=== PATIENT | male | born 1965 | race Caucasian/White ===

== ENCOUNTER 2019-01-26 13:04 | Inpatient (IN) | payer OTHER ==
[2019-01-26] MEDS ORDERED: NA CHLORIDE 0.9% 250 ML ONE (13:52)
[2019-01-26] MEDS ORDERED: VANCOMYCIN 1 GM/VIAL ONE (13:52)
--- NOTE | 2019-01-26 13:52 | ER ---
Nurse's Notes [facility] Name: Rayo Tidwell Age: 53 yrs Sex: Male : 1965 Arrival Date: 01/26/2019 Time: 13:09 Bed 24 Private MD: Arnel Arceo Diagnosis: Cellulitis of right lower limb-failed outpatient treatment Presentation: 01/26 13:14 Presenting complaint: Patient states: Diagnosed Thursday by Dr. Arceo with RLE ss cellulitis. Pt reports he was given a shot of antibiotics and began taking an oral regimen, but it is not helping, but getting worse. PT had US obtained yesterday of affected extremity which was negative for DVT. Transition of care: patient was not received from another setting of care. Onset of symptoms was January 23, 2019. Risk Assessment: Do you want to hurt yourself or someone else? Patient reports no desire to harm self or others. Initial Sepsis Screen: Does the patient meet any 2 criteria? No. Patient's initial sepsis screen is negative. Does the patient have a suspected source of infection? Yes: Skin breakdown/wound. Care prior to arrival: None. 13:14 Method Of Arrival: Ambulatory ss 13:14 Acuity: DEVEN 3 ss Triage Assessment: 14:12 General: Appears in no apparent distress. Behavior is calm, cooperative. Pain: ls4 Complains of pain in right foot Pain currently is 6 out of 10 on a pain scale. Neuro: Level of Consciousness is awake, alert, obeys commands, Oriented to person, place, time, situation. Cardiovascular: Reports None Capillary refill < 3 seconds Patient's skin is warm and dry. Respiratory: Airway is patent Respiratory effort is even, unlabored, Respiratory pattern is regular. Derm: Skin is pink, warm \T\ dry. right leg edema and redness from calf and continues distally to foot. Musculoskeletal: No deficits noted. Historical: - Allergies: 13:21 No Known Allergies; ss - PMHx: 13:21 Hypertension; Hypothyroidism; ss - PSHx: 13:21 None; ss - Immunization history:: Adult Immunizations up to date. - Social history:: Smoking status: . - Ebola Screening: : Patient denies exposure to infectious person Patient denies travel to an Ebola-affected area in the 21 days before illness onset. Screenin:11 Abuse screen: Denies threats or abuse. Denies injuries from another. Nutritional ls4 screening: No deficits noted. Tuberculosis screening: No symptoms or risk factors identified. Fall Risk None identified. Assessment: 14:23 Reassessment: Patient appears in no apparent distress at this time. Patient and/or ls4 family updated on plan of care and expected duration. Pain level reassessed. Patient is alert, oriented x 3, equal unlabored respirations, skin warm/dry/pink. Vital Signs: 13:21 BP 117 / 76; Pulse 88; Resp 17; Temp 98.2; Pulse Ox 99% on R/A; Weight 127.01 kg; ls4 Height 6 ft. 1 in. (185.42 cm); Pain 6/10; 14:23 BP 112 / 70; Pulse 84; Resp 16; Pulse Ox 99% on R/A; Pain 6/10; ls4 16:59 BP 124 / 80; Pulse 87; Resp 16; Pulse Ox 99% on R/A; Pain 5/10; ls4 13:21 Body Mass Index 36.94 (127.01 kg, 185.42 cm) ls4 ED Course: 13:09 Patient arrived in ED. rg4 13:09 Arnel Arceo MD is Private Physician. rg4 13:14 [facility]mill[facility]C [facility]. kb 13:14 Dennis Parks MD is Attending Physician. kb 13:20 Triage completed. ss 13:21 Arm band placed on right wrist. ss 13:32 Romina Hutchinson, ITALO is Primary Nurse. ls4 13:51 Kenneth Fernandez DO is Hospitalizing Provider. kb 14:00 Initial lab(s) drawn, by me, sent to lab. First set of blood cultures drawn by me. ls4 14:10 No provider procedures requiring assistance completed. Inserted saline lock: 20 gauge ls4 in left antecubital area, using aseptic technique. Blood collected. 14:11 Patient has correct armband on for positive identification. Side rails up X 1. Placed ls4 in gown. Bed in low position. Call light in reach. Pulse ox on. NIBP on. Warm blanket given. Verbal reassurance given. 17:30 Patient admitted, IV remains in place. ls4 Administered Medications: 14:15 Drug: vancoMYCIN 1 grams Route: IVPB; Infused Over: 2 hrs; Site: left antecubital; ls4 15:48 Follow up: IV Status: Completed infusion; IV Intake: 250ml ls4 14:15 Drug: NS 0.9% 1000 ml Route: IV; Rate: 1000 ml; Site: left antecubital; ls4 15:48 Follow up: IV Status: Completed infusion; IV Intake: 1000ml ls4 15:48 Drug: Cefepime 2 grams Route: IVPB; Rate: 200 ml/hr; Infused Over: 30 mins; Site: left ls4 antecubital; 16:18 Follow up: IV Status: Completed infusion; IV Intake: 100ml ls4 Intake: 15:48 IV: 250ml; Total: 250ml. ls4 15:48 IV: 1000ml; Total: 1250ml. ls4 16:18 IV: 100ml; Total: 1350ml. ls4 Outcome: 13:51 Decision to Hospitalize by Provider. kb 17:27 Admitted to Med/surg accompanied by nurse, room 222, Report called to Jordyn PUCKETT ls4 17:27 Condition: stable 17:27 Discharge instructions given to patient, Instructed on the need for admit, Demonstrated understanding of 17:31 Patient left the ED. ls4 Signatures: Mirela Mcmillan, RUBBER STAMP ASSEMBLER-C RUBBER STAMP ASSEMBLER-Ckb Maritza Watts RN RN ss Luly Baltazar 4 Romina Hutchinson RN RN ls4 Corrections: (The following items were deleted from the chart) 14:23 13:21 Resp 17bpm; 127.01 kg; Height 6 ft. 1 in.; BMI: 36.9; Pain 6/10; ss ls4 15:48 15:48 IV Status: Completed infusion ls4 ls4 17:01 13:21 BP 117 / 76; Pulse 88bpm; Resp 17bpm; 127.01 kg; Height 6 ft. 1 in.; BMI: 36.9; ls4 Pain 6/10; ls4
--- NOTE | 2019-01-26 13:52 | EDPHYS ---
Physician Documentation [facility] Name: Rayo Tidwell Age: 53 yrs Sex: Male : 1965 Arrival Date: 01/26/2019 Time: 13:09 Bed 24 Private MD: Arnel Arceo ED Physician Dennis Parks HPI: 01/26 13:56 This 53 yrs old Male presents to ER via Ambulatory with complaints of Leg kb Swelling. 13:56 The patient presents with cellulitis of the right lower leg. Description: erythematous, kb hot, swollen. Onset: The symptoms/episode began/occurred 4 day(s) ago. Possible cause(s): unknown. Associated signs and symptoms: Pertinent positives: nausea. Modifying factors: the symptoms are alleviated by nothing, the symptoms are aggravated by nothing. Severity of symptoms: At their worst the symptoms were moderate, in the emergency department the symptoms are unchanged. The patient has not experienced similar symptoms in the past. The patient has not recently seen a physician. Pt reports he started having chills, malaise and nausea on Thursday. Thursday had slight redness to right lower leg and tenderness. Redness and swelling progressed throughout the day, went to [place] and was put on Keflex. Swelling and redness is getting worse so he called [place] and was told to come to ER for IV antibiotics.. Historical: - Allergies: 13:21 No Known Allergies; ss - PMHx: 13:21 Hypertension; Hypothyroidism; ss - PSHx: 13:21 None; ss - Immunization history:: Adult Immunizations up to date. - Social history:: Smoking status: . - Ebola Screening: : Patient denies exposure to infectious person Patient denies travel to an Ebola-affected area in the 21 days before illness onset. ROS: 13:53 ENT: Negative for injury, pain, and discharge, Neck: Negative for injury, pain, and kb swelling, Cardiovascular: Negative for chest pain, palpitations, and edema, Respiratory: Negative for shortness of breath, cough, wheezing, and pleuritic chest pain, Abdomen/GI: Negative for abdominal pain, nausea, vomiting, diarrhea, and constipation, Neuro: Negative for headache, weakness, numbness, tingling, and seizure. 13:53 Constitutional: Positive for chills, malaise. 13:53 Skin: Positive for cellulitis, erythema, of the right lower leg. Exam: 13:55 Constitutional: This is a well developed, well nourished patient who is awake, alert, kb and in no acute distress. Head/Face: Normocephalic, atraumatic. Chest/axilla: Normal chest wall appearance and motion. Nontender with no deformity. No lesions are appreciated. Cardiovascular: Regular rate and rhythm with a normal S1 and S2. No gallops, murmurs, or rubs. Normal PMI, no JVD. No pulse deficits. Respiratory: Lungs have equal breath sounds bilaterally, clear to auscultation and percussion. No rales, rhonchi or wheezes noted. No increased work of breathing, no retractions or nasal flaring. Abdomen/GI: Soft, non-tender, with normal bowel sounds. No distension or tympany. No guarding or rebound. No evidence of tenderness throughout. MS/ Extremity: Pulses equal, no cyanosis. Neurovascular intact. Full, normal range of motion. Neuro: Awake and alert, GCS 15, oriented to person, place, time, and situation. Cranial nerves II-XII grossly intact. Motor strength 5/5 in all extremities. Sensory grossly intact. Cerebellar exam normal. Normal gait. 13:55 Skin: cellulitis, that is moderate, that is severe, on the right lower leg (calf to foot). Vital Signs: 13:21 BP 117 / 76; Pulse 88; Resp 17; Temp 98.2; Pulse Ox 99% on R/A; Weight 127.01 kg; ls4 Height 6 ft. 1 in. (185.42 cm); Pain 6/10; 14:23 BP 112 / 70; Pulse 84; Resp 16; Pulse Ox 99% on R/A; Pain 6/10; ls4 16:59 BP 124 / 80; Pulse 87; Resp 16; Pulse Ox 99% on R/A; Pain 5/10; ls4 13:21 Body Mass Index 36.94 (127.01 kg, 185.42 cm) ls4 MDM: 13:14 Patient medically screened. kb 13:48 Data reviewed: vital signs, nurses notes. Data interpreted: Pulse oximetry: on room air kb is 100 %. Interpretation: normal. Counseling: I had a detailed discussion with the patient and/or guardian regarding: the historical points, exam findings, and any diagnostic results supporting the discharge/admit diagnosis, lab results, the need for further work-up and treatment in the hospital. 13:51 Physician consultation: Kenneth Fernandez DO was contacted at 13:51, regarding admission, kb to the medical/surgical unit. patient's condition, in the emergency department to see patient at 13:51. 01/26 13:22 Order name: CBC with Diff; Complete Time: 14:30 kb 01/26 13:22 Order name: Basic Metabolic Panel; Complete Time: 14:30 kb 01/26 13:22 Order name: Procalcitonin; Complete Time: 14:56 kb 01/26 13:22 Order name: Blood Culture Adult (2) kb 01/26 13:22 Order name: Lactate; Complete Time: 14:37 kb 01/26 13:22 Order name: IV Start; Complete Time: 14:11 kb Administered Medications: 14:15 Drug: vancoMYCIN 1 grams Route: IVPB; Infused Over: 2 hrs; Site: left antecubital; ls4 15:48 Follow up: IV Status: Completed infusion; IV Intake: 250ml ls4 14:15 Drug: NS 0.9% 1000 ml Route: IV; Rate: 1000 ml; Site: left antecubital; ls4 15:48 Follow up: IV Status: Completed infusion; IV Intake: 1000ml ls4 15:48 Drug: Cefepime 2 grams Route: IVPB; Rate: 200 ml/hr; Infused Over: 30 mins; Site: left ls4 antecubital; 16:18 Follow up: IV Status: Completed infusion; IV Intake: 100ml ls4 Disposition: 01/26/19 13:51 Hospitalization ordered by Kenneth Fernandez for Inpatient Admission. Preliminary diagnosis is Cellulitis of right lower limb - failed outpatient treatment. - Bed requested for Telemetry/MedSurg (Inpatient). - Status is Inpatient Admission. ls4 - Condition is Stable. - Problem is new. - Symptoms are unchanged. UTI on Admission? No Signatures: Dispatcher [employer] Mirela Deleon FNP-C FNP-Ckb Dirrim, Barbara bd Smirch, Shelby, RN RN ss Stewart, Lisa, RN RN ls4 Corrections: (The following items were deleted from the chart) 16:18 13:51 Hospitalization Ordered by eKnneth Fernandez DO for Inpatient Admission. Preliminary bd diagnosis is Cellulitis of right lower limb - failed outpatient treatment. Bed requested for Telemetry/MedSurg (Inpatient). Status is Inpatient Admission. Condition is Stable. Problem is new. Symptoms are unchanged. UTI on Admission? No. kb 17:31 16:18 01/26/2019 13:51 Hospitalization Ordered by Kenneth Fernandez DO for Inpatient ls4 Admission. Preliminary diagnosis is Cellulitis of right lower limb - failed outpatient treatment. Bed requested for Telemetry/MedSurg (Inpatient). Status is Inpatient Admission. Condition is Stable. Problem is new. Symptoms are unchanged. UTI on Admission? No. bd
[2019-01-26 14:16] LABS: Absolute Lymphocytes (CBC) 1.4 K/uL (0.7-4.9); Absolute Monocytes 0.9 K/uL (0.1-1.3); Absolute Neutrophil 4.7 K/uL (1.8-8.0); Basophils % 0.4 % (0-1.3); Eosinophils % 1.6 % (0-4.4); Lymphocytes % 19.8 % (15.3-44.8); MPV 9.4 fL (7.6-11.3); Monocytes % 12.4 % (3.3-12.3); RBC Red Blood Cell Count 4.38 M/uL (4.33-5.43)
[2019-01-26 14:28] LABS: Potassium 3.8 mmol/L (3.5-5.1)
--- NOTE | 2019-01-26 15:05 | P.HP ---
Certification for Inpatient Patient admitted to: Inpatient With expected LOS: >2 Midnights Patient will require the following post-hospital care: None Practitioner: I am a practitioner with admitting privileges, knowledge of patient current condition, hospital course, and medical plan of care. Services: Services provided to patient in accordance with Admission requirements found in Title 42 Section 412.3 of the Code of Federal Regulations Patient History Date of Service: 01/26/19 Primary Care Provider: Dr. Newell Reason for admission: Failed Outpatient RLE Cellulitis History of Present Illness: 53-year-old male presented to emergency room with right lower extremity cellulitis. Erythema, swelling, and warmth was 1st noted on Thursday. He made an appointment on Thursday to see his PCP. He was given Keflex over the last 2 days. He also had a venous Doppler of the lower extremity to rule out DVT. He reported that this was negative. The erythema worsened. He now has streaking circumferentially below the knee and above the knee medially. He has reported some chills. No significant nausea, vomiting. No GI changes noted. No chest pain or shortness of breath. Patient came to the ER after it was recommended by his PCP. In the ER white count 7.2, hemoglobin 15. Lactic acid negative. Sodium 138, potassium 3.8, creatinine 1.34 with a GFR 56. Significant edema, erythema noted. Patient was given IV vancomycin in the emergency room. Blood cultures obtained. Patient was admitted for treatment. The patient the ER, he appeared comfortable. Patient with history of hypertension, hypothyroidism, varicose veins with chronic venous insufficiency of the lower extremities. Patient stands a lot at work. He does use compression stockings. 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 He has 1 child. 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 - Family History Sister -: Diabetes Father -: Cancer (Prostate cancer) - Social History Smoking Status: Never smoker Alcohol use: Yes CD- Drugs: No Caffeine use: Yes Place of Residence: Home Review of Systems General: Chills, As per HPI Eyes: Unremarkable ENT: Unremarkable Respiratory: Unremarkable Cardiovascular: Unremarkable Gastrointestinal: Unremarkable Genitourinary: Unremarkable Musculoskeletal: Pedal edema, As per HPI Integumentary: As per HPI Neurological: Unremarkable Lymphatics: Unremarkable Physical Examination - Physical Exam General: Alert, In no apparent distress, Oriented x3, Cooperative HEENT: Atraumatic, Normocephalic, PERRLA, Mucous membr. moist/pink Neck: Supple, No Thyromegaly Respiratory: Clear to auscultation bilaterally, Normal air movement Cardiovascular: Normal pulses, Regular rate/rhythm Gastrointestinal: Normal bowel sounds, Soft and benign, Non-distended, No ascites, No tenderness, No masses, No rebound, No guarding Musculoskeletal: Other (Warmth to the right lower extremity especially below-the -knee) Integumentary: Other (Erythema, swelling, warmth to the right lower extremity circumferentially below the knee to the ankle region. Some streaking noted to the right medial thigh.) Neurological: Normal speech, Normal strength at 5/5 x4 extr, Normal tone, Normal affect - Studies Laboratory Data (last 24 hrs) 01/26/19 14:00: Sodium 138, Potassium 3.8, BUN 25 H, Creatinine 1.34 H, Glucose 105 01/26/19 14:00: WBC 7.2, Hgb 15.8, Hct 45.0, Plt Count 208 Assessment and Plan - Plan Impression: Right lower extremity cellulitis, failed outpatient therapy complicated with underlying chronic venous insufficiency with varicosities Hypertension Hypothyroidism Asthma Obesity Plan: Right lower extremity cellulitis, failed outpatient therapy complicated with underlying chronic venous insufficiency with varicosities: Patient will be admitted for treatment. Patient has been started on IV vancomycin and cefepime. Will have pharmacy monitor and adjust appropriately. Will have wound care evaluate and treat. Will elevate leg when sitting or lying. Patient had venous Doppler done yesterday at an outside facility. He reported that this was negative. Will obtain results. Will continue to monitor closely. Patient will need a continue with compression stockings at home. Anticipate discharge in the next 3-5 days with clinical improvement. Hypertension: Restart medication. Will monitor and adjust appropriately. Hypothyroidism: Restart medication. Asthma: Will provide medication. Obesity: Will address lifestyle modification education. Discharge Plan: Home Plan to discharge in: Greater than 2 days - Advance Directives Does patient have a Living Will: No Does patient have a Durable POA for Healthcare: No - Code Status/Comfort Care Code Status Assessed: Yes (Patient full code.) Time Spent Managing Pts Care (In Minutes): 55
[2019-01-26] MEDS ORDERED: NA CHLORIDE 0.9% 1,000 ML ONE (15:35)
[2019-01-26] MEDS ORDERED: NA CHLORIDE 0.9% 100 ML IV ONE (15:46)
[2019-01-26] MEDS ORDERED: CEFEPIME 2 GM VIAL ONE (15:46)
[2019-01-26] MEDS ORDERED: ONDANSETRON 4 MG/2 ML VIAL IV PRN (17:43)
[2019-01-26] MEDS ORDERED: ACETAMINOPHEN 500 MG TAB PO PRN (17:43)
[2019-01-26] MEDS ORDERED: HYDROCODONE/APAP 7.5/325 MG TAB PO PRN (17:43)
[2019-01-26] MEDS ORDERED: TRAMADOL HCL 50 MG TAB PO PRN (17:43)
[2019-01-26 17:58] VITALS: BMI 37.2
[2019-01-26] MEDS ORDERED: ALBUTEROL INHALER 60 PUFF/8 GM IH PRN (19:15)
[2019-01-26] MEDS ORDERED: CEFEPIME 1 GM/VIAL IV SCH (21:00)
[2019-01-26] MEDS: DULERA 100/5 (MOMETASONE/FORMOTEROL) INHALER IH SCH (21:00)
[2019-01-26] MEDS: CEFEPIME/SWI 1gm 10 ML IV SCH (21:00)
[2019-01-26] MEDS ORDERED: CEFEPIME 1 GM/100 ML BAG IV ONE (22:35)
[2019-01-26] MEDS: VANCOMYCIN 2 GM in NA CHLORIDE 0.9% 500 ML IVPB SCH (22:41)
[2019-01-26] MEDS: ENOXAPARIN 40 MG/0.4 ML SQ SCH (22:44)
[2019-01-27] LABS: Urine Appearance CLEAR; Urine Bilirubin NEGATIVE (NEG); Urine Blood 1+ (NEG); Urine Color YELLOW; Urine Glucose NEGATIVE (NEG); Urine Protein NEGATIVE (NEG); Urine Specific Gravity 1.025 (1.005-1.030); Urine Urobilinogen 0.2 mg/dL (0.2-1.0)
[2019-01-27 00:18] LABS: Urine Microscopic Reflex ORDER UMIC
[2019-01-27 00:25] LABS: Urine Bacteria <20 /HPF (NONE SEEN); Urine Culture Reflex Order NOT NEEDED; Urine RBC <5 /HPF (NONE SEEN)
[2019-01-27] MEDS: LEVOTHYROXINE SOD 0.088 MG TAB PO SCH (05:26)
[2019-01-27 06:32] LABS: Absolute Lymphocytes (CBC) 1.6 K/uL (0.7-4.9); Absolute Monocytes 0.8 K/uL (0.1-1.3); Absolute Neutrophil 4.8 K/uL (1.8-8.0); Basophils % 0.5 % (0-1.3); Hematocrit 42.5 % (39.6-49.0); Lymphocytes % 21.5 % (15.3-44.8); MPV 9.1 fL (7.6-11.3); Monocytes % 11.3 % (3.3-12.3); RBC Red Blood Cell Count 4.11 M/uL (4.33-5.43)
[2019-01-27 06:48] LABS: Magnesium 2.2 mg/dL (1.8-2.4); Potassium 4.2 mmol/L (3.5-5.1)
[2019-01-27] MEDS: LISINOPRIL 20 MG TAB PO SCH (09:00)
[2019-01-27] MEDS: DULERA 100/5 (MOMETASONE/FORMOTEROL) INHALER IH SCH ×2 (09:50→21:00)
[2019-01-27] MEDS: ENOXAPARIN 40 MG/0.4 ML SQ SCH (09:51)
[2019-01-27] MEDS: CEFEPIME/SWI 1gm 10 ML IV SCH ×2 (09:52→21:34)
--- NOTE | 2019-01-27 10:32 | P.PN ---
Subjective Date of Service: 01/27/19 Primary Care Provider: Dr. Newell Chief Complaint: Failed Outpatient RLE Cellulitis Subjective: Doing well (Swelling to the right lower extremity improved) Physical Examination - Vital Signs Temperature: 97.6 F Blood Pressure: 126/79 Pulse: 82 Respirations: 15 Pulse Ox (%): 96 - Physical Exam General: Alert, In no apparent distress, Oriented x3, Cooperative HEENT: Atraumatic Neck: Supple Respiratory: Clear to auscultation bilaterally, Normal air movement Cardiovascular: Normal pulses, Regular rate/rhythm Gastrointestinal: Normal bowel sounds, Non-distended Integumentary: Other (Swelling, erythema and warmth improved to the right lower extremity. No streaking above the knee. Bulli formation noted to the right lower extremity. Overall improved) Neurological: Normal speech, Normal strength at 5/5 x4 extr, Normal tone, Normal affect - Studies Laboratory Data (last 24 hrs) 01/26/19 14:00: Sodium 138, Potassium 3.8, BUN 25 H, Creatinine 1.34 H, Glucose 105 01/26/19 14:00: WBC 7.2, Hgb 15.8, Hct 45.0, Plt Count 208 Medications List Reviewed: Yes Assessment & Plan Discharge Plan: Home Plan to discharge in: 48 Hours Physician Review Additional Text: Impression: Right lower extremity cellulitis, failed outpatient therapy complicated with underlying chronic venous insufficiency with varicosities Hypertension Hypothyroidism Asthma Obesity, BMI 37.2 Plan: Right lower extremity cellulitis, failed outpatient therapy complicated with underlying chronic venous insufficiency with varicosities: Overall right lower extremity improved. Care discussed with customs import specialist. Continue with wound care recommendations. Elevate leg when sitting or lying. Patient currently on IV vancomycin and cefepime. Encourage ambulation. Will hold off on compression stockings at this time. Likely discharge in the next 2-3 days. Hypertension: Continue with home medication. Overall stable. Will monitor and adjust appropriately. Hypothyroidism: Continue with home medication. Asthma: Continue with medication. Obesity, BMI 37.2: Continue to address lifestyle modification education. Time Spent Managing Pts Care (In Minutes): 55
[2019-01-27] MEDS: VANCOMYCIN 2 GM in NA CHLORIDE 0.9% 500 ML IVPB SCH (16:15)
[2019-01-27] MEDS ORDERED: VANCOMYCIN 2 GM in NA CHLORIDE 0.9% 500 ML IVPB SCH (21:00)
[2019-01-28] MEDS: LEVOTHYROXINE SOD 0.088 MG TAB PO SCH (05:35)
[2019-01-28 05:38] LABS: Absolute Lymphocytes (CBC) 1.7 K/uL (0.7-4.9); Absolute Monocytes 0.9 K/uL (0.1-1.3); Absolute Neutrophil 4.8 K/uL (1.8-8.0); Basophils % 0.6 % (0-1.3); Hematocrit 41.1 % (39.6-49.0); Lymphocytes % 22.1 % (15.3-44.8); MPV 8.8 fL (7.6-11.3); Monocytes % 11.3 % (3.3-12.3); RBC Red Blood Cell Count 3.98 M/uL (4.33-5.43)
[2019-01-28 05:47] LABS: Magnesium 2.2 mg/dL (1.8-2.4); Potassium 4.3 mmol/L (3.5-5.1)
[2019-01-28] MEDS: DULERA 100/5 (MOMETASONE/FORMOTEROL) INHALER IH SCH ×2 (08:11→20:54)
[2019-01-28] MEDS: CEFEPIME/SWI 1gm 10 ML IV SCH ×2 (08:11→20:54)
[2019-01-28] MEDS: LISINOPRIL 20 MG TAB PO SCH (08:12)
[2019-01-28] MEDS: ENOXAPARIN 40 MG/0.4 ML SQ SCH (08:12)
[2019-01-28] MEDS: VANCOMYCIN 2 GM in NA CHLORIDE 0.9% 500 ML IVPB SCH (08:24)
--- NOTE | 2019-01-28 08:54 | P.PN ---
Subjective Date of Service: 01/28/19 Primary Care Provider: Dr. Newell Chief Complaint: Failed Outpatient RLE Cellulitis Subjective: Improving Physical Examination - Vital Signs Temperature: 97.4 F Blood Pressure: 126/71 Pulse: 94 Respirations: 18 Pulse Ox (%): 94 - Physical Exam General: Alert, In no apparent distress, Oriented x3, Cooperative HEENT: Atraumatic Neck: Supple Respiratory: Clear to auscultation bilaterally, Normal air movement Cardiovascular: Normal pulses, Regular rate/rhythm Gastrointestinal: Normal bowel sounds, Soft and benign, Non-distended Musculoskeletal: No tenderness, No warmth Integumentary: Other (Continued improvement of erythema and swelling to the right lower extremity.) Neurological: Normal speech, Normal strength at 5/5 x4 extr, Normal tone, Normal affect - Studies Medications List Reviewed: Yes Assessment & Plan Discharge Plan: Home Plan to discharge in: 24 Hours Physician Review Additional Text: Impression: Right lower extremity cellulitis, failed outpatient therapy complicated with underlying chronic venous insufficiency with varicosities Hypertension Hypothyroidism Asthma Obesity, BMI 37.2 Plan: Right lower extremity cellulitis, failed outpatient therapy complicated with underlying chronic venous insufficiency with varicosities: Patient continues to improve. Erythema and swelling improved. Encourage ambulation. Continue to elevate leg when sitting or lying. Continue IV vancomycin and cefepime. Likely discharge tomorrow with oral antibiotic therapy, likely need for 2 antibiotics at discharge. Continue with wound care recommendations. 1 significantly improved patient can continue with his compression stockings at home. I will turn the service over to Dr. Bunn tomorrow. I will go over the plan of care with her. Hypertension: Continue with home medication. Overall stable. Will monitor and adjust appropriately. Hypothyroidism: Continue with home medication. Asthma: Continue with medication. Obesity, BMI 37.2: Continue to address lifestyle modification education. Time Spent Managing Pts Care (In Minutes): 55
[2019-01-28 22:12] VITALS: O2SAT 93
[2019-01-29] MEDS: VANCOMYCIN 2 GM in NA CHLORIDE 0.9% 500 ML IVPB SCH (02:15)
[2019-01-29] MEDS: LEVOTHYROXINE SOD 0.088 MG TAB PO SCH (05:53)
[2019-01-29 06:04] LABS: Absolute Lymphocytes (CBC) 1.7 K/uL (0.7-4.9); Absolute Monocytes 0.8 K/uL (0.1-1.3); Absolute Neutrophil 5.9 K/uL (1.8-8.0); Eosinophils % 6.9 % (0-4.4); Hematocrit 42.3 % (39.6-49.0); Lymphocytes % 18.6 % (15.3-44.8); MPV 9.1 fL (7.6-11.3); Monocytes % 8.8 % (3.3-12.3); RBC Red Blood Cell Count 4.13 M/uL (4.33-5.43)
[2019-01-29 06:14] LABS: Potassium 4.1 mmol/L (3.5-5.1)
[2019-01-29] MEDS: DULERA 100/5 (MOMETASONE/FORMOTEROL) INHALER IH SCH (09:00)
[2019-01-29] MEDS: LISINOPRIL 20 MG TAB PO SCH (09:00)
[2019-01-29] MEDS: CEFEPIME/SWI 1gm 10 ML IV SCH (09:24)
[2019-01-29] MEDS: ENOXAPARIN 40 MG/0.4 ML SQ SCH (09:24)
--- NOTE | 2019-01-29 12:02 | P.DS ---
Admission Date: 01/26/19 Discharge Date: 01/29/19 Primary Care Provider: Dr. Newell Disposition: ROUTINE DISCHARGE Discharge Condition: FAIR Reason for Admission: Failed Outpatient RLE Cellulitis Brief History of Present Illness: see hc Hospital Course: 53-year-old male presented to emergency room with right lower extremity Erythema, swelling, and warmth was 1st noted on Thursday and was given Keflex over the last 2 days. He also had a venous Doppler of the lower extremity to rule out DVT. He reported that this was negative. The erythema worsened. pt was admitted for cellultis and was started on IV abx ,erythema and pain improved and pt reported decrease swelling and redness pt denied CP or SOB and no overnight events pt is clinically stable for the dc pt was amanged for : Right lower extremity cellulitis, failed outpatient therapy complicated with underlying chronic venous insufficiency with varicosities Hypertension Hypothyroidism Asthma Obesity plan: IV abx compression stockings leg elevation Vital Signs/Physical Exam: Temp Pulse Resp BP Pulse Ox 98.2 F 83 18 147/84 H 93 01/29/19 07:52 01/29/19 09:00 01/29/19 07:52 01/29/19 09:00 01/29/19 07:52 General: Alert, In no apparent distress, Oriented x3 HEENT: Atraumatic, Normocephalic, PERRLA Neck: Supple, 2+ carotid pulse no bruit, JVD not distended Respiratory: Clear to auscultation bilaterally, Normal air movement Cardiovascular: No edema, Regular rate/rhythm, Normal S1 S2 Gastrointestinal: Normal bowel sounds, Soft and benign, Non-distended Musculoskeletal: Swelling, Erythema (of the right leg ) Integumentary: No breakdown, Skin lesion (blister of the right leg ) Neurological: Normal speech, Normal strength at 5/5 x4 extr Laboratory Data at Discharge: WBC 9.1 K/uL (4.3-10.9) D 01/29/19 05:48 Hgb 14.9 g/dL (13.6-17.9) 01/29/19 05:48 Hct 42.3 % (39.6-49.0) 01/29/19 05:48 Plt Count 262 K/uL (152-406) D 01/29/19 05:48 Sodium 142 mmol/L (136-145) 01/29/19 05:48 Potassium 4.1 mmol/L (3.5-5.1) 01/29/19 05:48 BUN 16 mg/dL (7-18) 01/29/19 05:48 Creatinine 1.04 mg/dL (0.55-1.3) 01/29/19 05:48 Glucose 94 mg/dL (74-106) 01/29/19 05:48 Magnesium 2.0 mg/dL (1.8-2.4) 01/29/19 05:48 Home Medications: Albuterol Sulfate [Albuterol Sulfate Hfa] 2 puff IH Q6HP PRN 01/26/19 Fluticasone Propionate [Armonair Respiclick] 1 puff IH BID 01/26/19 Levothyroxine [Synthroid*] 0.88 mg PO DAILY 01/26/19 Lisinopril 40 mg PO DAILY 01/26/19 Meloxicam [Mobic*] 7.5 mg PO DAILY 01/26/19 Clindamycin HCl 300 mg PO TID 7 Days #21 capsule 01/29/19 New Medications: Clindamycin HCl 300 mg PO TID 7 Days #21 capsule Patient Discharge Instructions: keep leg elevated. return to ER if increased swelling ,redness or pain Diet: Low sodium Activity: Ad vesna Followup: Arnel Arceo MD [Primary Care Provider] -
[2019-01-29 12:03] VITALS: BP 135/87; TEMP 97.8
== END 2019-01-29 13:25 | disposition home or self-care (01) | DRG 603 ==
LOC: ER 13:04 → ERHOLD 14:47 → 2ND 17:00
PROVIDERS: ADMIT Family Medicine; ATTEND Family Medicine
DX: L03.115 Cellulitis of right lower limb (principal); I87.2 Venous insufficiency (chronic) (peripheral); I10 Essential (primary) hypertension; E03.9 Hypothyroidism, unspecified; J45.909 Unspecified asthma, uncomplicated; E66.9 Obesity, unspecified; Z68.37 Body mass index [BMI] 37.0-37.9, adult
CPT/HCPCS: 36415; 80048; 81003; 81015; 83605; 83735; 84145; 85025; 87040; 96365; 96367; 99285; J0692; J1650; J7030; J7606

== ENCOUNTER 2019-02-02 08:22 | Inpatient (IN) | payer OTHER ==
[2019-02-02 10:09] LABS: Absolute Lymphocytes (CBC) 1.9 K/uL (0.7-4.9); Basophils % 0.5 % (0-1.3); Eosinophils % 3.3 % (0-4.4); Hematocrit 47.4 % (39.6-49.0); Lymphocytes % 22.3 % (15.3-44.8); MPV 8.3 fL (7.6-11.3); Monocytes % 7.9 % (3.3-12.3); RBC Red Blood Cell Count 4.54 M/uL (4.33-5.43)
[2019-02-02 10:25] LABS: Potassium 4.5 mmol/L (3.5-5.1)
--- NOTE | 2019-02-02 11:03 | P.HP ---
Certification for Inpatient Patient admitted to: Inpatient Practitioner: I am a practitioner with admitting privileges, knowledge of patient current condition, hospital course, and medical plan of care. Services: Services provided to patient in accordance with Admission requirements found in Title 42 Section 412.3 of the Code of Federal Regulations Patient History Date of Service: 02/02/19 Reason for admission: Right lower extremity cellulitis History of Present Illness: 53-year-old male with a PMH of HTN, Hypothyroidism, varicose veins with chronic venous insufficiency presented to emergency room with right lower extremity cellulitis. He was recently discharged 4 days ago on PO clindamycin for his RLE cellulitis. Per patient, it has not gotten better and infact thinks it has gotten worse. He had a blister that spontaneously ruptured yesterday. The eryhtema has not improved but it has not worsened by much either. He states that he is unable to stand or walk on it for too long. Denies any fevers , chills, cp, sob, nausea or vomiting. Therefore he came back to the ER. In the ER white count was normal, Lactic acid negative. Otherwise labs were stable. He was hemodynamically stable. Significant edema, erythema noted. Patient was given IV vancomycin in the emergency room. Blood cultures were not obtained. Patient was admitted for treatment for failure of outpatient therapy. The patient was seen and evaluated in the ER, he appeared comfortable. Allergies No Known Allergies Allergy (Verified 01/26/19 17:43) Home medications list reviewed: Yes Home Medications: Albuterol Sulfate [Albuterol Sulfate Hfa] 2 puff IH Q6HP PRN 01/26/19 Fluticasone Propionate [Armonair Respiclick] 1 puff IH BID 01/26/19 Levothyroxine [Synthroid*] 0.88 mg PO DAILY 01/26/19 Lisinopril 40 mg PO DAILY 01/26/19 Meloxicam [Mobic*] 7.5 mg PO DAILY 01/26/19 Clindamycin HCl 300 mg PO TID 7 Days #21 capsule 01/29/19 - Past Medical/Surgical History Diabetic: No -: Hypertension -: Hypothyroidism -: Asthma -: Varicose veins with venous insufficiency -: Arthritis -: Obesity -: 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 He has 1 child. He owns a barbecue restaurant. - Family History Sister -: Diabetes Father -: Cancer - Social History Alcohol use: Yes CD- Drugs: No Caffeine use: No Review of Systems 10-point ROS is otherwise unremarkable Physical Examination - Physical Exam General: Alert, In no apparent distress, Oriented x3 HEENT: Atraumatic, PERRLA, Mucous membr. moist/pink, EOMI, Sclerae nonicteric Neck: Supple, 2+ carotid pulse no bruit, No LAD, Without JVD or thyroid abnormality Respiratory: Clear to auscultation bilaterally, Normal air movement Cardiovascular: Regular rate/rhythm, Normal S1 S2 Gastrointestinal: Normal bowel sounds, No tenderness Musculoskeletal: No tenderness Integumentary: Tenderness/swelling (Right lower extremity), Erythema, Warmth, Other (Blister, spontaneously ruptured, located on the inner calf of right lower extremity) Neurological: Normal gait, Normal speech, Normal strength at 5/5 x4 extr, Normal tone, Normal affect - Studies Laboratory Data (last 24 hrs) 02/02/19 09:55: Sodium 141, Potassium 4.5, BUN 21 H, Creatinine 1.21, Glucose 97 02/02/19 09:55: WBC 8.7, Hgb 16.0, Hct 47.4, Plt Count 340 D Assessment and Plan - Problems (Diagnosis) (1) Cellulitis of right lower extremity Current Visit: Yes Status: Acute Plan: Failed outpatient treatment. - IV vancomycin - demarcated area of cellulitis, monitor - wound care consulted - pain control if needed - elevate legs - compression stockings on discharge (2) Chronic venous insufficiency Current Visit: No Status: Chronic (3) Varicose veins of both lower extremities Current Visit: No Status: Chronic Qualifiers: Varicose vein complication: asymptomatic Qualified Code(s): I83.93 - Asymptomatic varicose veins of bilateral lower extremities (4) Hypertension Current Visit: No Status: Chronic Plan: Stable. We will restart home medications once reconciled Qualifiers: Hypertension type: essential hypertension Qualified Code(s): I10 - Essential (primary) hypertension (5) Hypothyroid Current Visit: Yes Status: Acute Plan: Stable, restart home medication (6) Asthma Current Visit: No Status: Chronic Plan: Restart home inhalers as needed Qualifiers: Asthma severity: unspecified severity Asthma persistence: unspecified Asthma complication type: uncomplicated Qualified Code(s): J45.909 - Unspecified asthma, uncomplicated (7) Obesity (BMI 35.0-39.9 without comorbidity) Current Visit: No Status: Chronic - Plan DVT prophylaxis: Lovenox, encouraged ambulation GI prophylaxis: None Diet: Heart healthy Disposition: Pending symptomatic improvement. Continue IV antibiotics. Anticipate discharge in the next 48 hr Discharge Plan: Home Plan to discharge in: 48 Hours - Advance Directives Does patient have a Living Will: No Does patient have a Durable POA for Healthcare: No Time Spent Managing Pts Care (In Minutes): 55
--- NOTE | 2019-02-02 11:16 | ER ---
Nurse's Notes [facility] Name: Rayo Tidwell Age: 53 yrs Sex: Male : 1965 Arrival Date: 02/02/2019 Time: 08:24 Bed 24 Private MD: Arnel Arceo Diagnosis: Cellulitis of right lower limb Presentation: 02/02 08:49 Presenting complaint: Patient states: cellulitis to RLE x 1.5 weeks. PT reports he was ss recently admitted to hospital, and discharged this past Thursday, but now reports that his symptoms are not improving. Pt is currently taking oral Clindamycin to treat the infection. Transition of care: patient was not received from another setting of care. Onset of symptoms was January 23, 2019. Risk Assessment: Do you want to hurt yourself or someone else? Patient reports no desire to harm self or others. Initial Sepsis Screen: Does the patient meet any 2 criteria? No. Patient's initial sepsis screen is negative. Does the patient have a suspected source of infection? No. Patient's initial sepsis screen is negative. Care prior to arrival: None. 08:49 Method Of Arrival: Ambulatory ss 08:49 Acuity: DEVEN 3 ss Historical: - Allergies: 08:51 No Known Allergies; ss - PMHx: 08:51 Hypertension; Hypothyroidism; ss - PSHx: 08:51 None; ss - Immunization history:: Adult Immunizations up to date. - Social history:: Smoking status: Patient/guardian denies using tobacco. - Ebola Screening: : Patient denies exposure to infectious person Patient denies travel to an Ebola-affected area in the 21 days before illness onset. Screenin:42 Abuse screen: Denies threats or abuse. Denies injuries from another. Nutritional aj screening: No deficits noted. Tuberculosis screening: No symptoms or risk factors identified. Fall Risk None identified. Assessment: 09:42 General: Appears in no apparent distress. comfortable, Behavior is calm, cooperative, aj appropriate for age. Pain: Complains of pain in right leg. Neuro: Level of Consciousness is awake, alert, obeys commands, Oriented to person, place, time, situation, Appropriate for age. Respiratory: Airway is patent Respiratory effort is even, unlabored, Respiratory pattern is regular, symmetrical. Derm: Skin is intact, is healthy with good turgor, Skin is pink, warm \T\ dry. normal, Redness and swelling to RLL with large blister noted. Blister appears to be healing with granulation tissue noted at site. Reports pain. Musculoskeletal: Swelling present in medial aspect of right calf and right ankle. Vital Signs: 08:51 BP 119 / 84; Pulse 104; Resp 16; Temp 97.8(TE); Pulse Ox 95% on R/A; Weight 124.74 kg; ss Height 6 ft. 1 in. (185.42 cm); Pain 5/10; 09:42 BP 129 / 83; Pulse 91; Resp 17; Pulse Ox 94% on R/A; aj 10:59 BP 128 / 88; Pulse 85; Resp 17; Pulse Ox 94% on R/A; aj 08:51 Body Mass Index 36.28 (124.74 kg, 185.42 cm) ED Course: 08:24 Patient arrived in ED. as 08:26 Arnel Arceo MD is Private Physician. as 08:51 Triage completed. ss 08:51 Arm band placed on right wrist. ss 09:28 Norberto Scott MD is Attending Physician. kdr 09:34 Analy Edward RN is Primary Nurse. aj 09:42 Patient has correct armband on for positive identification. Placed in gown. Bed in low aj position. Call light in reach. Adult w/ patient. Pulse ox on. NIBP on. 10:18 Inserted saline lock: 22 gauge in right hand, using aseptic technique. Blood collected. aj 11:15 Dori Moseley MD is Hospitalizing Provider. kdr 12:31 No provider procedures requiring assistance completed. Patient admitted, IV remains in aj place. intact. Administered Medications: 12:06 Drug: vancoMYCIN 1.5 grams Route: IVPB; Rate: calculated rate; Site: right hand; aj 12:32 Follow up: IV Status: Infusion continued upon admission aj Outcome: 11:15 Decision to Hospitalize by Provider. kdr 12:31 Admitted to Med/surg accompanied by tech, via wheelchair, room 203, Report called to aj Bem 12:31 Condition: good 12:31 Instructed on the need for admit. 12:33 Patient left the ED. aj Signatures: Analy Edward, RN RN Norberto Fernandez MD MD kdr Eliseo, Latasha as Smirch, Maritza, RN RN ss
--- NOTE | 2019-02-02 11:17 | EDPHYS ---
Physician Documentation [facility] Name: Rayo Tidwell Age: 53 yrs Sex: Male : 1965 Arrival Date: 02/02/2019 Time: 08:24 Bed 24 Private MD: Arnel Arceo ED Physician Norberto Scott HPI: 02/02 11:16 This 53 yrs old Male presents to ER via Ambulatory with complaints of kdr Cellulitis. 11:16 The patient presents with pain, that is acute, Cellulitis. The complaints affect the kdr lateral aspect of right calf, right ankle, lateral aspect of right foot, medial aspect of right calf, medial aspect of right foot and right mendez. Context: The problem was sustained at an unknown site, resulted from an unknown cause, the patient can fully bear weight, the patient is able to ambulate, Problem is a result from a previous injury: No. Onset: The symptoms/episode began/occurred at an unknown time. Modifying factors: The symptoms are alleviated by elevating leg, remaining still, the symptoms are aggravated by movement, weight bearing, bending knee. Associated signs and symptoms: The patient has no apparent associated signs or symptoms. Treatment prior to arrival includes: The patient was discharged Thursday for the same issue. It is not improved and in some respects feels like it is getting worse. Severity of symptoms: At their worst the symptoms were mild, moderate, just prior to arrival, in the emergency department the symptoms are unchanged. The patient has not experienced similar symptoms in the past, The patient has experienced a previous episode, last week. The patient has been recently seen by a physician: Dr. Moseley. Historical: - Allergies: 08:51 No Known Allergies; ss - PMHx: 08:51 Hypertension; Hypothyroidism; ss - PSHx: 08:51 None; ss - Immunization history:: Adult Immunizations up to date. - Social history:: Smoking status: Patient/guardian denies using tobacco. - Ebola Screening: : Patient denies exposure to infectious person Patient denies travel to an Ebola-affected area in the 21 days before illness onset. ROS: 11:16 Constitutional: Negative for fever, chills, and weight loss, Eyes: Negative for injury, kdr pain, redness, and discharge, Neck: Negative for injury, pain, and swelling, Cardiovascular: Negative for chest pain, palpitations, and edema, Respiratory: Negative for shortness of breath, cough, wheezing, and pleuritic chest pain, Abdomen/GI: Negative for abdominal pain, nausea, vomiting, diarrhea, and constipation, Back: Negative for injury and pain. 11:16 Skin: Positive for cellulitis, discoloration, ecchymosis, erythema, swelling, of the lateral aspect of right calf, right ankle, right calf, medial aspect of right calf, medial aspect of right foot, right mendez and anterior aspect of right ankle. Exam: 11:16 Constitutional: This is a well developed, well nourished patient who is awake, alert, kdr and in no acute distress. Head/Face: Normocephalic, atraumatic. Eyes: Pupils equal round and reactive to light, extra-ocular motions intact. Lids and lashes normal. Conjunctiva and sclera are non-icteric and not injected. Cornea within normal limits. Periorbital areas with no swelling, redness, or edema. Neck: Trachea midline, no thyromegaly or masses palpated, and no cervical lymphadenopathy. Supple, full range of motion without nuchal rigidity, or vertebral point tenderness. No Meningismus. Chest/axilla: Normal chest wall appearance and motion. Nontender with no deformity. No lesions are appreciated. Cardiovascular: Regular rate and rhythm with a normal S1 and S2. No gallops, murmurs, or rubs. Normal PMI, no JVD. No pulse deficits. Respiratory: Lungs have equal breath sounds bilaterally, clear to auscultation and percussion. No rales, rhonchi or wheezes noted. No increased work of breathing, no retractions or nasal flaring. Abdomen/GI: Soft, non-tender, with normal bowel sounds. No distension or tympany. No guarding or rebound. No evidence of tenderness throughout. Back: No spinal tenderness. No costovertebral tenderness. Full range of motion. Male : Normal genitalia with no discharge or lesions. MS/ Extremity: Pulses equal, no cyanosis. Neurovascular intact. Full, normal range of motion. Neuro: Awake and alert, GCS 15, oriented to person, place, time, and situation. Cranial nerves II-XII grossly intact. Motor strength 5/5 in all extremities. Sensory grossly intact. Cerebellar exam normal. Normal gait. Psych: Awake, alert, with orientation to person, place and time. Behavior, mood, and affect are within normal limits. 11:16 Skin: cellulitis, that is severe, confluent, irregular, well demarcated, on the lateral aspect of right calf, right ankle, right calf, medial aspect of right calf, right mendez, anterior aspect of right ankle and dorsum of right foot, induration, that is mild is noted, that is moderate is noted. Vital Signs: 08:51 BP 119 / 84; Pulse 104; Resp 16; Temp 97.8(TE); Pulse Ox 95% on R/A; Weight 124.74 kg; ss Height 6 ft. 1 in. (185.42 cm); Pain 5/10; 09:42 BP 129 / 83; Pulse 91; Resp 17; Pulse Ox 94% on R/A; aj 10:59 BP 128 / 88; Pulse 85; Resp 17; Pulse Ox 94% on R/A; aj 08:51 Body Mass Index 36.28 (124.74 kg, 185.42 cm) MDM: 11:15 Patient medically screened. [facility] 11:16 Data reviewed: vital signs, nurses notes, residential records, diagnostic data from [facility] outside facility. 02/02 09:38 Order name: CBC with Diff; Complete Time: 11:16 kdr 02/02 09:38 Order name: Chem 7; Complete Time: 11:16 kdr 02/02 12:05 Order name: Diet Regular; Complete Time: 12:08 Administered Medications: 12:06 Drug: vancoMYCIN 1.5 grams Route: IVPB; Rate: calculated rate; Site: right hand; 12:32 Follow up: IV Status: Infusion continued upon admission aj Disposition: 02/02/19 11:15 Hospitalization ordered by Dori Moseley for Observation. Preliminary diagnosis is Cellulitis of right lower limb. - Bed requested for Telemetry/MedSurg (observation). - Status is Observation. aj - Condition is Fair. - Problem is an ongoing problem. - Symptoms have worsened. UTI on Admission? No Signatures: Dispatcher [employer] Janna Stoddard RN RN dw Myers, Amanda, RN RN aj Rittger, Kevin, MD MD [facility] Maritza Watts RN RN ss Corrections: (The following items were deleted from the chart) 12:08 11:15 Hospitalization Ordered by Dori Moseley MD for Observation. Preliminary diagnosis dw is Cellulitis of right lower limb. Bed requested for Telemetry/MedSurg (observation). Status is Observation. Condition is Fair. Problem is an ongoing problem. Symptoms have worsened. UTI on Admission? No. kdr 12:33 12:08 02/02/2019 11:15 Hospitalization Ordered by Dori Moseley MD for Observation. aj Preliminary diagnosis is Cellulitis of right lower limb. Bed requested for Telemetry/MedSurg (observation). Status is Observation. Condition is Fair. Problem is an ongoing problem. Symptoms have worsened. UTI on Admission? No. dw
[2019-02-02] MEDS ORDERED: VANCOMYCIN 1.5 GM in NA CHLORIDE 0.9% 500 ML IVPB ONE (12:00)
[2019-02-02 12:46] VITALS: BMI 36.3
[2019-02-02] MEDS ORDERED: VANCOMYCIN 1.25 GM in NA CHLORIDE 0.9% 250 ML IVPB SCH (13:08)
[2019-02-02] MEDS: ENOXAPARIN 40 MG/0.4 ML SQ SCH (16:38)
[2019-02-02 20:52] LABS: Urine Appearance CLEAR; Urine Bilirubin NEGATIVE (NEG); Urine Blood NEGATIVE (NEG); Urine Color YELLOW; Urine Glucose NEGATIVE (NEG); Urine Protein NEGATIVE (NEG); Urine Urobilinogen 0.2 mg/dL (0.2-1.0)
[2019-02-02 20:59] LABS: Urine Bacteria <20 /HPF (NONE SEEN); Urine Culture Reflex Order NOT NEEDED; Urine RBC <5 /HPF (NONE SEEN)
[2019-02-02] MEDS: FLUTICASONE PROPIONATE IH SCH (21:00)
[2019-02-03] MEDS: VANCOMYCIN 2 GM in NA CHLORIDE 0.9% 500 ML IVPB SCH ×2 (01:02→11:32)
[2019-02-03 06:03] LABS: Absolute Lymphocytes (CBC) 1.8 K/uL (0.7-4.9); Basophils % 0.6 % (0-1.3); Eosinophils % 3.4 % (0-4.4); Hematocrit 43.6 % (39.6-49.0); Lymphocytes % 24.6 % (15.3-44.8); MPV 8.2 fL (7.6-11.3); Monocytes % 8.8 % (3.3-12.3)
[2019-02-03 06:08] LABS: Potassium 4.4 mmol/L (3.5-5.1)
[2019-02-03] MEDS: LEVOTHYROXINE SOD 0.088 MG TAB PO SCH (06:30)
[2019-02-03 06:44] LABS: Magnesium 2.4 mg/dL (1.8-2.4); Phosphorus 3.2 mg/dL (2.5-4.9)
[2019-02-03] MEDS: FLUTICASONE PROPIONATE IH SCH ×2 (08:58→21:00)
[2019-02-03] MEDS: LISINOPRIL 20 MG TAB PO SCH (08:59)
[2019-02-03] MEDS ORDERED: HOME MED 1 EA UNK (Lisinopril [Lisinopril] 40 MG) PO SCH (09:00)
--- NOTE | 2019-02-03 10:34 | P.PN ---
Subjective Date of Service: 02/03/19 Chief Complaint: Right lower extremity cellulitis Subjective: No C/O voiced, Improving Patient seen and examined at bedside. family at bedside. Chart reviewed and case discussed with nursing staff. Patient admitted for failed outpatient treatment for right lower extremity cellulitis. Wound unwrapped and examined at bedside. Swelling and redness Looks improved, blister have spontaneously ruptured prior to admission. Intermittently draining. No fevers or chills, chest pain, shortness of breath, GI or complaints. Review of Systems 10-point ROS is otherwise unremarkable Physical Examination - Vital Signs Temperature: 97.9 F Blood Pressure: 126/68 Pulse: 71 Respirations: 20 Pulse Ox (%): 94 - Physical Exam General: Alert, In no apparent distress, Oriented x3 HEENT: Atraumatic, PERRLA, EOMI Neck: Supple, JVD not distended Respiratory: Clear to auscultation bilaterally, Normal air movement Cardiovascular: Regular rate/rhythm, Normal S1 S2 Gastrointestinal: Normal bowel sounds, No tenderness Musculoskeletal: No tenderness Integumentary: Tenderness/swelling, Erythema, Warmth, Other (Ruptured blister, right lower extremity. Intermittently draining.) Neurological: Normal speech, Normal tone, Normal affect Lymphatics: No axilla or inguinal lymphadenopathy Assessment And Plan - Current Problems (Diagnosis) (1) Cellulitis of right lower extremity Current Visit: Yes Status: Acute Plan: Failed outpatient treatment. - continue IV vancomycin - demarcated area of cellulitis, monitor - wound care consulted, recommendations appreciated - pain control if needed - elevate legs - compression stockings on discharge (2) Chronic venous insufficiency Current Visit: No Status: Chronic (3) Varicose veins of both lower extremities Current Visit: No Status: Chronic Qualifiers: Varicose vein complication: asymptomatic Qualified Code(s): I83.93 - Asymptomatic varicose veins of bilateral lower extremities (4) Hypertension Current Visit: No Status: Chronic Plan: Stable. We will restart home medications once reconciled Qualifiers: Hypertension type: essential hypertension Qualified Code(s): I10 - Essential (primary) hypertension (5) Hypothyroid Current Visit: Yes Status: Acute Plan: Stable, restart home medication (6) Asthma Current Visit: No Status: Chronic Plan: Restart home inhalers as needed Qualifiers: Asthma severity: unspecified severity Asthma persistence: unspecified Asthma complication type: uncomplicated Qualified Code(s): J45.909 - Unspecified asthma, uncomplicated (7) Obesity (BMI 35.0-39.9 without comorbidity) Current Visit: No Status: Chronic - Plan DVT prophylaxis: Lovenox, encouraged ambulation GI prophylaxis: None Diet: Heart healthy Disposition: Pending symptomatic improvement. Continue IV antibiotics. Anticipate discharge in the next 24 hr
[2019-02-03] MEDS: ENOXAPARIN 40 MG/0.4 ML SQ SCH (16:54)
[2019-02-04 05:34] LABS: Absolute Lymphocytes (CBC) 1.6 K/uL (0.7-4.9); Basophils % 0.5 % (0-1.3); Eosinophils % 4.3 % (0-4.4); Hematocrit 44.8 % (39.6-49.0); Lymphocytes % 18.4 % (15.3-44.8); MPV 8.4 fL (7.6-11.3); Monocytes % 8.3 % (3.3-12.3); RBC Red Blood Cell Count 4.35 M/uL (4.33-5.43)
[2019-02-04 05:50] LABS: Potassium 4.5 mmol/L (3.5-5.1)
[2019-02-04 06:22] VITALS: O2SAT 93
[2019-02-04] MEDS: LEVOTHYROXINE SOD 0.088 MG TAB PO SCH (06:30)
[2019-02-04] MEDS: VANCOMYCIN 2 GM in NA CHLORIDE 0.9% 500 ML IVPB SCH ×4 (08:00→10:13)
[2019-02-04] MEDS: FLUTICASONE PROPIONATE IH SCH (08:19)
[2019-02-04] MEDS: LISINOPRIL 20 MG TAB PO SCH (08:20)
[2019-02-04 12:45] VITALS: BP 127/77; TEMP 98.1
--- NOTE | 2019-02-04 17:50 | P.DS ---
Admission Date: 02/02/19 Discharge Date: 02/04/19 Disposition: ROUTINE DISCHARGE Discharge Condition: GOOD Reason for Admission: Right lower extremity cellulitis - Problems (1) Cellulitis of right lower extremity Status: Acute (2) Chronic venous insufficiency Status: Chronic (3) Varicose veins of both lower extremities Status: Chronic Qualifiers: Varicose vein complication: asymptomatic Qualified Code(s): I83.93 - Asymptomatic varicose veins of bilateral lower extremities (4) Hypertension Status: Chronic Qualifiers: Hypertension type: essential hypertension Qualified Code(s): I10 - Essential (primary) hypertension (5) Hypothyroid Status: Acute (6) Asthma Status: Chronic Qualifiers: Asthma severity: unspecified severity Asthma persistence: unspecified Asthma complication type: uncomplicated Qualified Code(s): J45.909 - Unspecified asthma, uncomplicated (7) Obesity (BMI 35.0-39.9 without comorbidity) Status: Chronic Brief History of Present Illness: 53-year-old male with a PMH of HTN, Hypothyroidism, varicose veins with chronic venous insufficiency presented to emergency room with right lower extremity cellulitis. He was recently discharged 4 days ago on PO clindamycin for his RLE cellulitis. Per patient, it has not gotten better and infact thinks it has gotten worse. He had a blister that spontaneously ruptured yesterday. The eryhtema has not improved but it has not worsened by much either. He states that he is unable to stand or walk on it for too long. Denies any fevers , chills, cp, sob, nausea or vomiting. Therefore he came back to the ER. In the ER white count was normal, Lactic acid negative. Otherwise labs were stable. He was hemodynamically stable. Significant edema, erythema noted. Patient was given IV vancomycin in the emergency room. Blood cultures were not obtained.The patient was seen and evaluated in the ER, he appeared comfortable. Hospital Course: Patient was admitted for treatment for cellulitis and failure of outpatient therapy. He was started on IV vancomycin. He was monitored, wound care was consulted. He was wider with pain control as needed. He has an underlying history of varicose veins and chronic venous insufficiency, making the healing process harder. All of this was explained to the patient. He was instructed on elevating feet in using compression stockings once wound starts improving. His symptoms and wound improved. He was then discharged on oral Bactrim. He was asked to follow up his primary care physician in 2-3 days. He otherwise remained stable throughout the stay. His diagnosis and treatment plan were explained to him, all questions were answered and he verbalized understanding. He was then discharged home in a safe and stable manner. Vital Signs/Physical Exam: Temp Pulse Resp BP Pulse Ox 98.1 F 85 16 127/77 94 02/04/19 12:00 02/04/19 12:00 02/04/19 12:00 02/04/19 12:00 02/04/19 12:00 General: Alert, In no apparent distress, Oriented x3 HEENT: Atraumatic, PERRLA, EOMI Neck: Supple, JVD not distended Respiratory: Clear to auscultation bilaterally, Normal air movement Cardiovascular: Regular rate/rhythm, Normal S1 S2 Gastrointestinal: Normal bowel sounds, No tenderness Musculoskeletal: No tenderness Integumentary: Erythema, Warmth (Improved) Neurological: Normal speech, Normal tone, Normal affect Lymphatics: No axilla or inguinal lymphadenopathy Laboratory Data at Discharge: WBC 8.8 K/uL (4.3-10.9) D 02/04/19 05:15 Hgb 15.2 g/dL (13.6-17.9) 02/04/19 05:15 Hct 44.8 % (39.6-49.0) 02/04/19 05:15 Plt Count 302 K/uL (152-406) 02/04/19 05:15 Sodium 140 mmol/L (136-145) 02/04/19 05:15 Potassium 4.5 mmol/L (3.5-5.1) 02/04/19 05:15 BUN 18 mg/dL (7-18) 02/04/19 05:15 Creatinine 1.08 mg/dL (0.55-1.3) 02/04/19 05:15 Glucose 90 mg/dL (74-106) 02/04/19 05:15 Phosphorus 3.2 mg/dL (2.5-4.9) 02/03/19 05:26 Magnesium 2.4 mg/dL (1.8-2.4) 02/03/19 05:26 Home Medications: Albuterol Sulfate [Albuterol Sulfate Hfa] 2 puff IH Q6HP PRN 01/26/19 Fluticasone Propionate [Armonair Respiclick] 1 puff IH BID 01/26/19 Levothyroxine [Synthroid*] 0.88 mg PO DAILY 01/26/19 Lisinopril 40 mg PO DAILY 01/26/19 Meloxicam [Mobic*] 7.5 mg PO DAILY 01/26/19 Sulfamethoxazole/Trimethoprim [Bactrim Ds Tablet] 2 each PO BID #24 tablet 02/04 New Medications: Sulfamethoxazole/Trimethoprim [Bactrim Ds Tablet] 2 each PO BID #24 tablet Patient Discharge Instructions: Please follow up with your primary care physician in 2-3 days. Please return to the ER if worsening symptoms. Diet: ADA Activity: Ad vesna Followup: Arnel Arceo MD [Primary Care Provider] - 2-3 Days Time spent managing pt's care (in minutes): 45
== END 2019-02-04 12:41 | disposition home or self-care (01) | DRG 603 ==
LOC: ER 08:22 → ERHOLD 10:41 → 2ND 12:22
PROVIDERS: ADMIT Family Medicine; ATTEND Family Medicine
DX: L03.115 Cellulitis of right lower limb (principal); I87.2 Venous insufficiency (chronic) (peripheral); I83.93 Asymptomatic varicose veins of bilateral lower extremities; I10 Essential (primary) hypertension; J45.909 Unspecified asthma, uncomplicated; E66.9 Obesity, unspecified; E03.9 Hypothyroidism, unspecified; Z68.36 Body mass index [BMI] 36.0-36.9, adult
CPT/HCPCS: 36415; 80048; 80202; 81001; 83735; 84100; 85025; 94760; 96365; 99251; 99285; J1650